=== PATIENT | female | born 1980 | race Caucasian/White ===

== ENCOUNTER 2025-02-07 17:05 | Emergency (ER) | payer MEDICAID, SELFPAY ==
[2025-02-07 17:07] VITALS: BMI 36.5
[2025-02-07 17:30] VITALS: BP 122/78; PULSE 83; RESP 20; TEMP 36.9; O2SAT 96; BMI 36.5
--- NOTE | 2025-02-07 17:38 | XR_ITS ---
Examination: Shoulder,left, 3 views Technique: Shoulder AP internal rotation, AP external rotation, Y view shoulder, 3 views Exam date and time :February 07, 2025, 1751 hrs. Indications: Patient throughout all and fell pop in the shoulder today followed by pain Findings: No shoulder fracture or dislocation Mild narrowing glenohumeral joint Calcific tendinitis No AC joint separation Impression: No shoulder fracture or dislocation Soft tissue calcific tendinitis
--- NOTE | 2025-02-07 17:39 | EDRME_ITS ---
Rapid Medical Screening Exam [facility] Arrival date/time: 02/07/25 17:05 44-year-old female presents to the emergency department complaints of left shoulder pain after injury while playing sports today Chief Complaint: Extremity Problem,Nontraumatic Vital signs: Vital Signs Temperature 98.5 F 02/07/25 17:30 Pulse Rate 83 02/07/25 17:30 Respiratory Rate 20 02/07/25 17:30 Blood Pressure 122/78 02/07/25 17:30 Pulse Oximetry (%) 96 02/07/25 17:30 Oxygen Delivery Method Room Air 02/07/25 17:30
--- NOTE | 2025-02-07 19:13 | PC.NURSE ---
NO ANSWER FOR REVIEW
[2025-02-07 19:17] VITALS: BP 130/79; PULSE 75; RESP 18; O2SAT 96
--- NOTE | 2025-02-07 19:30 | EDNOTE_ITS ---
ED Extremity Problem RME/HPI General Chief complaint: Extremity Problem,Nontraumatic Stated complaint: LEFT SHOULDER PAIN Time Seen by Provider: 02/07/25 19:21 Arrival date/time: 02/07/25 17:05 RME / HPI RME / HPI Narrative: 44-year-old female presents to the emergency department complaints of left shoulder pain after injury while playing sports today. Pain is described as dull ache, severity moderate worse with range of motion of the shoulder joints. Patient denies any fever denies any other complaints no medication was taken prior to ER visit. Related Data Previous Rx's ?Medication ?Instructions ?Recorded ibuprofen 800 mg tablet 800 mg PO Q8H PRN pain #30 t abs 02/07/25 methocarbamol 500 mg tablet 500 mg PO Q8H PRN pain #20 tabs 02/07/25 Allergies Allergy/AdvReac Type Severity Reaction Status Date / Time codeine Allergy Unknown Verified 02/07/25 17:06 CODEINE, SULFA DRUG, VICODIN Allergy Unknown Uncoded 02/07/25 17:06 NKA Allergy Unknown Uncoded 02/07/25 17:06 HYDROCODONE BITARTRATE/APAP Allergy Y Uncoded 02/07/25 17:06 (Generic Allergy) SULFONAMIDES (Class Allergy) Allergy Y Uncoded 02/07/25 17:06 Review of Systems Review of Systems Narrative Review of Systems: Review of system reviewed and within normal limits except mentioned in HPI ED Exam Narrative Physical exam: VITAL SIGNS: Reviewed. GENERAL APPEARANCE: Alert and interactive, follows commands, no acute distress, HEAD AND FACE: Non-traumatic. ENT: PERRL, pink conjunctivitis, eyelid no trauma, Mucous membrane moist. NECK: Supple, nontender, no nuchal rigidity. CHEST: No tenderness, no crepitus, no paradoxical movement, no retractions. LUNGS: Clear, well ventilated, symmetric, no rales, no wheezing, no ronchi, no stridor, good breath sounds bilaterally. HEART: Regular rate, regular rhythm, no murmur, no gallops. ABDOMEN: Soft, positive bowel sounds, nondistended, no guarding, nontender, no rebound, no masses, RECTAL: Deferred. GENITAL: Deferred. NEUROLOGICAL: Gross motor function intact sensory function intact, Appropriate for age. MUSCULOSKELETAL: low back nontender, full range of motion. EXTREMITIES: Left anterior shoulder tenderness, with limitation range of motion. Distal neurovascular status intact. SKIN: Color pink, dry, no rash, no lacerations, no abrasions, no contusions. LYMPHATICS: Deferred. Course Quality Measures none Orders Category Date Time Status sling [Splint / Immobilizer] STAT Care 02/07/25 19:29 Ordered XR shoulder LT min 2V Stat Exams 02/07/25 17:38 Completed Ketorolac Inj [Toradol Inj] Med 02/07/25 19:29 Once 30 mg IM X1 ONE Vital Signs Vital signs: Vital Signs Temperature 98.5 F 02/07/25 17:30 Pulse Rate 83 02/07/25 17:30 Respiratory Rate 20 02/07/25 17:30 Blood Pressure 122/78 02/07/25 17:30 Pulse Oximetry (%) 96 02/07/25 17:30 Oxygen Delivery Method Room Air 02/07/25 17:30 Extremity Problem MDM Narrative MDM Narrative:: 44-year-old female presents to the emergency department complaints of left shoulder pain after injury while playing sports today. Pain is described as dull ache, severity moderate worse with range of motion of the shoulder joints. Patient denies any fever denies any other complaints no medication was taken prior to ER visit. X-ray of the shoulder showed calcific tendinitis otherwise unremarkable. Patient was given a copy of his x-ray and advised him to follow-up with PCP and for referral to shoulder specialist MD. Patient was placed in an arm sling and was given Toradol with significant for the pain. Patient data External records reviewed:: None Clinical information provided by:: patient Social determinants that could affect healthcare access:: none Patient has the following chronic illnesses:: None How is presenting disease/condition affected by chronic disease/condition?: no chronic disease Evaluation data The following diagnostics were reviewed and interpreted by me:: radiology exam(s) Lab and/or radiology exams considered but not ordered:: None Interpretation Summary: See results MDM Medications / Prescriptions Medications or Prescriptions considered but not ordered:: None Medication administrations:: Toradol IM Consultations Consultation(s) initiated? (list below): No Diagnosis Extremity Problem Differential Diagnosis: other (Calcific tendinitis shoulder, shoulder sprain, shoulder dislocation) Most likely diagnosis given after review of the tests above:: Calcific tendinitis shoulder Admission Indicated Admission indicated?: not indicated Explain why admission is indicated or not indicated:: Stable Admission Request Was there a request for admission?: No Disposition Plan Disposition Plan: Discharge Discharge Attestation Discharge Attestation: The patient and all family members were given an opportunity to ask questions and understood the discharge instructions. Discharge instructions specifically effects, indications for sooner follow up or return to the emergency department, and the expected course of current diagnosis. Patient condition: Stable Discharge Plan Plan Patient Disposition: HOME (Self Care) Discharge Disposition comment: stable Prescriptions/Referrals Prescriptions/Med Rec: New methocarbamol 500 mg tablet 500 mg PO Q8H PRN (Reason: pain) Qty: 20 0RF ibuprofen 800 mg tablet 800 mg PO Q8H PRN (Reason: pain) Qty: 30 0RF Referrals: No Primary/Family,Physician [Primary Care Provider] - In 1 week Problem List Clinical Impression: Acute shoulder pain, Calcific shoulder tendinitis Patient/Caregiver Discharge Instructions Additional Instructions: Thank you for the opportunity for serving you today. You are stable for discharged . You are advised to: Follow-up with your PCP in 1 to 2 days Return to ED for worsening of symptoms Increase oral fluids Take medication as prescribed Wear your arm sling as needed for pain As your PCP to refer you to joint specialist MD regarding your calcific tendinitis. shoulder Print Language: Czech Stand Alone Forms: Bibi Award Info., Patient Portal Info Letter
[2025-02-07] MEDS: KETOROLAC INJ 30 MG/ML VIAL IM (19:56)
== END 2025-02-07 20:32 | disposition home or self-care (01) ==
PROVIDERS: Emergency Provider Emergency Medicine
DX: M75.32 Calcific tendinitis of left shoulder (principal)
CPT/HCPCS: 73030; 96372; 99284; J1885